=== PATIENT | female | born 1995 | race Caucasian/White ===

== ENCOUNTER 2019-03-18 10:01 | Emergency (ER) | payer BC ==
[~2019-03-18] VITALS: Ht 162.6 cm; Wt 56.7 kg
[~2019-03-18 10:01] MED LIST: FAMO-96 PO
[2019-03-18 10:04] VITALS: Ht 162.6 cm; Wt 56.7 kg
[2019-03-18] MEDS ORDERED: LIDOCAINE/MYLANTA 40 ML BTL PO STA (10:18)
[2019-03-18] MEDS ORDERED: FAMOTIDINE 20 MG TAB PO STA (10:18)
[2019-03-18] MEDS ORDERED: BELLADONNA/PHENOBARBITAL TAB PO STA (10:18)
[2019-03-18 12:29] VITALS: BP 135/76; PULSE 74; RESP 20
== END 2019-03-18 12:31 | disposition home or self-care (01) ==
LOC: FTE 10:01
DX: R10.13 Epigastric pain (principal); K76.9 Liver disease, unspecified
CPT/HCPCS: 36415; 76705; 80053; 81001; 81025; 83690; 85025